=== PATIENT | male | born 1985 | race Caucasian/White ===

== ENCOUNTER 2018-03-18 17:18 | Emergency (ER) | payer BC ==
[~2018-03-18] VITALS: Ht 172.7 cm; Wt 90.7 kg
--- NOTE | 2018-03-18 17:37 | Emergency Room Report ---
History of Present Illness General Chief Complaint: Overdose Source: Patient Present Illness HPI Patient is a 32-year-old male who presented after reported overdose on multiple medications. Patient states that he ingested some GHB as well as multiple gabapentin. The patient says ingestion occurred approximately 1 hour prior to arrival. Patient had a brief loss of consciousness. States he has pain to his stomach and upper abdomen. He denies any vomiting. He reports having had generalized body aches. The patient denies any alcohol use. He states he may have taken some other things but does not recall what else he may have taken. Allergies: Coded Allergies: AMOXICILLIN (Unverified Allergy, Unknown, 03/18/18) Uncoded Allergies: AMOXICILLINS (Allergy, Unknown, 03/18/18) Patient History Reviewed Nursing Documentation: PMH: Agreed; PSxH: Agreed Nursing Documentation-PM Past Medical History: No History, Except For Review of Systems All Other Systems: negative except mentioned in HPI Physical Exam Vital Signs Date Time Temp Pulse Resp B/P (MAP) Pulse Ox O2 Delivery O2 Flow Rate FiO2 03/18/18 17:23 87 20 125/55 100 Room Air Sp02 EP Interpretation: reviewed, normal General Appearance: normal inspection, well appearing, no apparent distress, alert, GCS 15 Head: atraumatic ENT: normal ENT inspection, hearing grossly normal, normal voice Neck: normal inspection, full range of motion, supple, no bony tend Respiratory: normal inspection, lungs clear, normal breath sounds, no respiratory distress, no retraction, no wheezing Cardiovascular #1: regular rate, rhythm, no edema Gastrointestinal: normal inspection, normal bowel sounds, non tender, soft, no guarding, no hernia Genitourinary: no CVA tenderness Musculoskeletal: normal inspection, back normal, normal range of motion Neurologic: normal inspection, alert, oriented x3, responsive, box toe cutter III-XII nml as tested, speech normal Psychiatric: normal inspection, judgement/insight normal, mood/affect normal Skin: normal inspection, normal color, no rash Medical Decision Making Diagnostic Impression: Primary Impression: Drug overdose ER Course patient presented for drug overdose. Differential diagnoses include substance abuse, psychosis, bipolar disorder, depression, malingering. Because of complexity of patient's case laboratory testing and imaging studies were ordered.The laboratory studies were notable for elevated white blood count. Patient states is normal for him. The patient was advised to have white blood count rechecked. The patient was advised drug cessation. The patient stated he will go to a rehabilitation facility.The patient is advised to follow up with rehabilitation. Patient is advised to return if any worsening condition or if any changes in status that are concerning. This report is dictated with [employer] bibliographic services specialist software which may occasionally lead to discrepancies related to use of this software. Labs Test 03/18/18 17:45 White Blood Count 17.3 K/UL (4.8-10.8) Red Blood Count 4.94 M/UL (4.70-6.10) Hemoglobin 15.6 G/DL (14.2-18.0) Hematocrit 44.1 % (42.0-52.0) Mean Corpuscular Volume 89 FL (80-99) Mean Corpuscular Hemoglobin 31.6 PG (27.0-31.0) Mean Corpuscular Hemoglobin Concent 35.4 G/DL (32.0-36.0) Red Cell Distribution Width 11.6 % (11.6-14.8) Platelet Count 253 K/UL (150-450) Mean Platelet Volume 8.8 FL (6.5-10.1) Neutrophils (%) (Auto) 75.0 % (45.0-75.0) Lymphocytes (%) (Auto) 14.2 % (20.0-45.0) Monocytes (%) (Auto) 6.3 % (1.0-10.0) Eosinophils (%) (Auto) 3.5 % (0.0-3.0) Basophils (%) (Auto) 1.1 % (0.0-2.0) Urine Color Pale yellow Urine Appearance Clear Urine pH 5 (4.5-8.0) Urine Specific [place] 1.025 (1.005-1.035) Urine Protein Negative (NEGATIVE) Urine Glucose (UA) Negative (NEGATIVE) Urine Ketones 1+ (NEGATIVE) Urine Blood Negative (NEGATIVE) Urine Nitrite Negative (NEGATIVE) Urine Bilirubin Negative (NEGATIVE) Urine Urobilinogen Normal MG/DL (0.0-1.0) Urine Leukocyte Esterase 1+ (NEGATIVE) Urine RBC 0-2 /HPF (0 - 0) Urine WBC 2-4 /HPF (0 - 0) Urine Squamous Epithelial Cells None /LPF (NONE/OCC) Urine Bacteria Few /HPF (NONE) Sodium Level 142 MMOL/L (136-145) Potassium Level 4.0 MMOL/L (3.5-5.1) Chloride Level 105 MMOL/L (98-107) Carbon Dioxide Level 29 MMOL/L (21-32) Anion Gap 8 mmol/L (5-15) Blood Urea Nitrogen 15 mg/dL (7-18) Creatinine 1.1 MG/DL (0.55-1.30) Estimat Glomerular Filtration Rate > 60 mL/min (>60) Glucose Level 91 MG/DL (74-106) Calcium Level 8.9 MG/DL (8.5-10.1) Total Bilirubin 0.2 MG/DL (0.2-1.0) Aspartate Amino Transf (AST/SGOT) 17 U/L (15-37) Alanine Aminotransferase (ALT/SGPT) 39 U/L (12-78) Alkaline Phosphatase 57 U/L (46-116) Total Protein 7.6 G/DL (6.4-8.2) Albumin 3.8 G/DL (3.4-5.0) Globulin 3.8 g/dL Albumin/Globulin Ratio 1.0 (1.0-2.7) Salicylates Level 3.7 ug/mL (2.8-20) Urine Opiates Screen Negative (NEGATIVE) Acetaminophen Level < 2 MCG/ML (10-30) Urine Barbiturates Screen Negative (NEGATIVE) Phencyclidine (PCP) Screen Negative (NEGATIVE) Urine Amphetamines Screen Negative (NEGATIVE) Urine Benzodiazepines Screen Negative (NEGATIVE) Urine Cocaine Screen Negative (NEGATIVE) Urine Marijuana (THC) Screen Positive (NEGATIVE) Serum Alcohol < 3 mg/dL Last Vital Signs Date Time Temp Pulse Resp B/P (MAP) Pulse Ox O2 Delivery O2 Flow Rate FiO2 03/18/18 17:23 87 20 125/55 100 Room Air Status: improved Disposition: HOME, SELF-CARE Condition: Stable Misha Shepherd MD Mar 18, 2018 17:37
[2018-03-18 18:00] VITALS: BP 108/91
[2018-03-18 18:16] LABS: APPEARANCE,URINE CLEAR; BILIRUBIN, URINE NEGATIVE (NEGATIVE); COLOR,URINE PALE YELLOW; GLUCOSE, URINE (UA) NEGATIVE (NEGATIVE); KETONES,URINE 1+ (NEGATIVE); LEUKOCYTE ESTERASE ,URINE 1+ (NEGATIVE); NITRITE,URINE NEGATIVE (NEGATIVE); PH,URINE 5 (4.5-8.0); PROTEIN,URINE NEGATIVE (NEGATIVE); UROBILINOGEN,URINE NORMAL MG/DL (0.0-1.0)
[2018-03-18 18:17] LABS: BASOPHILS % (AUTO) 1.1 % (0.0-2.0); EOSINOPHILS % (AUTO) 3.5 % (0.0-3.0); HEMATOCRIT 44.1 % (42.0-52.0); HEMOGLOBIN 15.6 G/DL (14.2-18.0); LYMPHOCYTES % (AUTO) 14.2 % (20.0-45.0); MEAN CORPUSCULAR VOLUME 89 FL (80-99); MONOCYTES % (AUTO) 6.3 % (1.0-10.0); PLATELET COUNT 253 K/UL (150-450); RED BLOOD COUNT 4.94 M/UL (4.70-6.10); RED CELL DISTRIBUTION WIDTH 11.6 % (11.6-14.8); WHITE BLOOD COUNT 17.3 K/UL (4.8-10.8)
[2018-03-18 18:28] LABS: ANION GAP 8 mmol/L (5-15); BLOOD UREA NITROGEN 15 mg/dL (7-18); CALCIUM 8.9 MG/DL (8.5-10.1); CARBON DIOXIDE 29 MMOL/L (21-32); CHLORIDE 105 MMOL/L (98-107); CREATININE 1.1 MG/DL (0.55-1.30); SODIUM 142 MMOL/L (136-145)
[2018-03-18 18:33] LABS: ALANINE AMINOTRANSFERASE 39 U/L (12-78); ALBUMIN 3.8 G/DL (3.4-5.0); ALKALINE PHOSPHATASE 57 U/L (46-116); ASPARTATE AMINO TRANSFERASE 17 U/L (15-37); BILIRUBIN,TOTAL 0.2 MG/DL (0.2-1.0)
[2018-03-18 18:43] VITALS: BP 108/91
[2018-03-18] MEDS ORDERED: Acetaminophen 500mg (ES) tab ORAL ONE (18:45)
== END 2018-03-18 18:44 | disposition home or self-care (01) ==
LOC: EMR 17:40
DX: T50.991A Poisoning by other drugs, medicaments and biological substances, accidental (unintentional), initial encounter (principal); R10.9 Unspecified abdominal pain; Y92.9 Unspecified place or not applicable; Z88.1 Allergy status to other antibiotic agents
CPT/HCPCS: 36415; 80053; 80307; 81003; 85025; 99284; G0480; 80329

== ENCOUNTER → 2020-05-22 | Emergency (ER) | payer BC ==
[~2020-05-22] VITALS: Ht 172.7 cm; Wt 108.9 kg
[~2020-05-22] MED LIST: Naloxone 0.4mg/ml Inj IVP ONE
--- NOTE | 2020-05-22 21:15 | NUR ---
ED Nurse Note: Patient brought in by ambulance [facility] 62 [facility] due to snorting fentanyl. Pt was given 4ml narcan per EMS. PAtient is awake and alert upon arrival. [employer] at bedside. Patient denies SI/HI. Pt denies CP/SOB/, fever and chills, N&V. Patient placed on monitor bed.
--- NOTE | 2020-05-22 21:16 | NUR ---
ED Nurse Note: ERMD at bedside
[2020-05-22 21:30] VITALS: BP 156/101
--- NOTE | 2020-05-22 21:30 | NUR ---
ED Nurse Note: Blood sent to lab
[2020-05-22 22:00] LABS: HEMATOCRIT 47.1 % (42.0-52.0); HEMOGLOBIN 15.2 G/DL (14.2-18.0); MEAN CORPUSCULAR VOLUME 93 FL (80-99); PLATELET COUNT 242 K/UL (150-450); RED BLOOD COUNT 5.09 M/UL (4.70-6.10); RED CELL DISTRIBUTION WIDTH 14.1 % (11.6-14.8); WHITE BLOOD COUNT 16.9 K/UL (4.8-10.8)
[2020-05-22 22:01] LABS: BASOPHILS % (AUTO) 1.2 % (0.0-2.0); EOSINOPHILS % (AUTO) 0.8 % (0.0-3.0); LYMPHOCYTES % (AUTO) 6.7 % (20.0-45.0); MONOCYTES % (AUTO) 4.7 % (1.0-10.0); NEUTROPHILS % (AUTO) 86.5 % (45.0-75.0)
[2020-05-22 22:12] LABS: ANION GAP 7 mmol/L (5-15); BLOOD UREA NITROGEN 15 mg/dL (7-18); CALCIUM 8.3 MG/DL (8.5-10.1); CARBON DIOXIDE 30 MMOL/L (21-32); CHLORIDE 101 MMOL/L (98-107); CREATININE 1.7 MG/DL (0.55-1.30); POTASSIUM 4.7 MMOL/L (3.5-5.1); SODIUM 138 MMOL/L (136-145)
[2020-05-22 22:16] LABS: ALANINE AMINOTRANSFERASE 29 U/L (12-78); ALBUMIN 3.9 G/DL (3.4-5.0); ALBUMIN/GLOBULIN RATIO 0.9 (1.0-2.7); ALKALINE PHOSPHATASE 64 U/L (46-116); ASPARTATE AMINO TRANSFERASE 24 U/L (15-37); BILIRUBIN,TOTAL 0.2 MG/DL (0.2-1.0)
--- NOTE | 2020-05-22 22:49 | Emergency Room Report ---
History of Present Illness General Chief Complaint: Substance Abuse Source: Patient (Gregorio Yousif MD) Present Illness HPI 35-year-old male presents to ED for overdose. Brought in by EMS from home. Used fentanyl today. Was given Narcan. Is now alert and oriented. Denies SI or HI. Was not trying to hurt himself. States he has been sober for a few months now. Takes Suboxone. Denies any other drug use. No other aggravating relieving factors. Denies any other associated symptoms (Gregorio Yousif MD) Allergies: Coded Allergies: AMOXICILLIN (Unverified Allergy, Unknown, 03/18/18) Uncoded Allergies: AMOXICILLINS (Allergy, Unknown, 03/18/18) COVID-19 Screening Contact w/high risk pt: No Experienced COVID-19 symptoms?: No COVID-19 Testing performed PRACTICE OFFICE ASSOCIATE: No (Gregorio Yousif MD) Patient History Past Medical History: none Past Surgical History: none Pertinent Family History: none Social History: Reports: drug use; Denies: smoking, alcohol use Immunizations: UTD Reviewed Nursing Documentation: PMH: Agreed; PSxH: Agreed (Gregorio Yousif MD) Nursing Documentation-PMH History Of Psychiatric Problem: Yes - substance abuse (Gregorio Yousif MD) Review of Systems All Other Systems: negative except mentioned in HPI (Gregorio Yousif MD) Physical Exam Vital Signs Date Time Temp Pulse Resp B/P (MAP) Pulse Ox O2 Delivery O2 Flow Rate FiO2 05/22/20 21:07 98.6 75 16 156/101 (119) 98 Room Air Sp02 EP Interpretation: reviewed, normal General Appearance: no apparent distress, alert, GCS 15, non-toxic Head: normocephalic, atraumatic Eyes: bilateral eye normal inspection, bilateral eye PERRL ENT: hearing grossly normal, normal pharynx, no angioedema, normal voice Neck: full range of motion, supple/symm/no masses Respiratory: chest non-tender, lungs clear, normal breath sounds, speaking full sentences Cardiovascular #1: regular rate, rhythm, no edema Cardiovascular #2: 2+ carotid (R), 2+ carotid (L), 2+ radial (R), 2+ radial (L), 2+ dorsalis pedis (R), 2+ dorsalis pedis (L) Gastrointestinal: normal bowel sounds, non tender, soft, non-distended, no guarding, no rebound Rectal: deferred Genitourinary: normal inspection, no CVA tenderness Musculoskeletal: back normal, normal range of motion, gait/station normal, non- tender Neurologic: alert, motor strength/tone normal, oriented x3, sensory intact, responsive, speech normal Psychiatric: judgement/insight normal, memory normal, no suicidal/homicidal ideation, no delusions, anxious Reflexes: 3+ bicep (R), 3+ bicep (L), 3+ tricep (R), 3+ tricep (L), 3+ knee (R), 3+ knee (L) Lymphatic: no adenopathy (Gregorio Yousif MD) Medical Decision Making Diagnostic Impression: Primary Impression: Substance abuse Additional Impressions: Marijuana abuse Nausea and vomiting Laboratory Tests Test 05/22/20 21:45 White Blood Count 16.9 K/UL (4.8-10.8) H Red Blood Count 5.09 M/UL (4.70-6.10) Hemoglobin 15.2 G/DL (14.2-18.0) Hematocrit 47.1 % (42.0-52.0) Mean Corpuscular Volume 93 FL (80-99) Mean Corpuscular Hemoglobin 29.9 PG (27.0-31.0) Mean Corpuscular Hemoglobin Concent 32.3 G/DL (32.0-36.0) Red Cell Distribution Width 14.1 % (11.6-14.8) Platelet Count 242 K/UL (150-450) Mean Platelet Volume 10.2 FL (6.5-10.1) H Neutrophils (%) (Auto) 86.5 % (45.0-75.0) H Lymphocytes (%) (Auto) 6.7 % (20.0-45.0) L Monocytes (%) (Auto) 4.7 % (1.0-10.0) Eosinophils (%) (Auto) 0.8 % (0.0-3.0) Basophils (%) (Auto) 1.2 % (0.0-2.0) Sodium Level 138 MMOL/L (136-145) Potassium Level 4.7 MMOL/L (3.5-5.1) Chloride Level 101 MMOL/L (98-107) Carbon Dioxide Level 30 MMOL/L (21-32) Anion Gap 7 mmol/L (5-15) Blood Urea Nitrogen 15 mg/dL (7-18) Creatinine 1.7 MG/DL (0.55-1.30) H Estimat Glomerular Filtration Rate 46.4 mL/min (>60) Glucose Level 87 MG/DL (74-106) Calcium Level 8.3 MG/DL (8.5-10.1) L Total Bilirubin 0.2 MG/DL (0.2-1.0) Aspartate Amino Transf (AST/SGOT) 24 U/L (15-37) Alanine Aminotransferase (ALT/SGPT) 29 U/L (12-78) Alkaline Phosphatase 64 U/L (46-116) Total Protein 8.1 G/DL (6.4-8.2) Albumin 3.9 G/DL (3.4-5.0) Globulin 4.2 g/dL Albumin/Globulin Ratio 0.9 (1.0-2.7) L Salicylates Level 2.6 ug/mL (2.8-20) L Acetaminophen Level < 2 MCG/ML (10-30) L Serum Alcohol < 3 mg/dL (Gregorio Yousif MD) ER Course 35-year-old male here with initial altered mental status. He was given Narcan with full resolution of his altered mental status. Patient denies fentanyl or heroin. Labs show nonspecific leukocytosis. No bandemia. UDS is positive for marijuana. Mild CASSANDRA He had a few episodes of vomiting which were medicated with Zofran. Abdominal examination was benign. Doubt surgical abdomen. Care to be signed out pending sobriety (Beverly Paredes D.O.) ER Course Assumed care of the patient from the previous provider at approximately 0630. Please refer to initial note for full history and physical exam. Briefly, 35-year-old male brought in for evaluation after substance abuse. He received Narcan with improvement his mental status. Labs otherwise unremarkable. He was pending sobriety at the time of signout. He is now awake, alert, ambulating with a steady gait. His sober living facility was contacted to pick the patient up. He is stable for outpatient follow-up. (Adalberto Osborne MD) EKG Diagnostic Results Troponin ordered: No (Beverly Paredes D.O.) Last Vital Signs Date Time Temp Pulse Resp B/P (MAP) Pulse Ox O2 Delivery O2 Flow Rate FiO2 05/22/20 21:07 98.6 75 16 156/101 (119) 98 Room Air Status: improved (Gregorio Yousif MD) Reevaluation Time: 05:24 Status: unchanged (Beverly Paredes D.O.) Disposition: HOME, SELF-CARE Condition: Stable Signed Out To: Dr Osborne pending re-examination after sobriety. (Beverly Paredes D.O.) Referrals: NOT CHOSEN IPA/,REFERRING (PCP) Gregorio Yousif MD May 22, 2020 22:49 Beverly Paredes D.O. May 23, 2020 05:26 Adalberto Osborne MD May 23, 2020 06:53
--- NOTE | 2020-05-23 00:10 | NUR ---
ED Nurse Note: Patient resting on bed. VSS as documented
[2020-05-23 01:00] VITALS: BP 148/89
[2020-05-23 03:00] VITALS: BP 137/78
--- NOTE | 2020-05-23 05:00 | NUR ---
ED Nurse Note: Patient vomited approx 50cc of gastric juice. ERMD notified with orders made and carried out
[2020-05-23 05:32] VITALS: BP 137/90
--- NOTE | 2020-05-23 06:30 | NUR ---
ED Nurse Note: Called [phone] but no answer. Left voicemail
--- NOTE | 2020-05-23 07:14 | NUR ---
ED Nurse Note: Report given to ANKITA MARTIN
[2020-05-23 07:15] VITALS: BP 122/77
--- NOTE | 2020-05-23 07:15 | NUR ---
ED Nurse Note: Patient is AAO x4 and follows commands. Pt is resting on gurney with no acute distress. Respirations are even and non labored.
--- NOTE | 2020-05-23 07:19 | NUR ---
ED Nurse Note: spoke with felician[facility] from [facility] and was told that he will picking belt operator the patient at 0830
== END | disposition home or self-care (01) ==
LOC: EDUNIT# 21:06 → EDBD 21:14 → EMR 21:55
DX: F19.10 Other psychoactive substance abuse, uncomplicated (principal); F12.10 Cannabis abuse, uncomplicated; R11.2 Nausea with vomiting, unspecified; Z88.1 Allergy status to other antibiotic agents; D72.829 Elevated white blood cell count, unspecified; N17.9 Acute kidney failure, unspecified
CPT/HCPCS: 36415; 80053; 85025; 96361; 96374; 96375; 96376; 99284; G0480; J2310; J2405; J7030; 80307

== ENCOUNTER 2020-06-09 11:13 | Emergency (ER) | payer BC ==
[~2020-06-09] VITALS: Ht 177.8 cm; Wt 104.3 kg
[2020-06-09 11:39] VITALS: BP 135/91
--- NOTE | 2020-06-09 11:41 | NUR ---
ED Nurse Note: walked in to ed c/o nose injury s/p fall during shower. pt states he slipped and hit his face on the wall. unk if loc, pt states utd tdap. nose not actively bleeding at this time. vss, nad, aaox4, ambulatory
[2020-06-09] MEDS ORDERED: Ketorolac 30mg Inj IM ONE (12:00)
[2020-06-09] MEDS ORDERED: Bacitracin Oint UD TOPIC ONE (12:00)
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
--- NOTE | 2020-06-09 12:29 | NUR ---
ED Nurse Note: Pt was taken to Xray
--- NOTE | 2020-06-09 13:03 | Diagnostic Imaging Report ---
EXAM: XR Nasal Bones, 3 or More Views CLINICAL HISTORY: TRAUMA TECHNIQUE: Frontal and lateral views of the nasal bones. COMPARISON: None FINDINGS: Bones/joints: Suspect nondisplaced fractures of the nasal bones which could be further evaluated with CT if clinically indicated. Sinuses: Unremarkable. No air-fluid levels. Soft tissues: Left facial piercing. IMPRESSION: Suspect nondisplaced fractures of the nasal bones which could be further evaluated with CT if clinically indicated.
[2020-06-09] MEDS ORDERED: IBUPROFEN600 M1 ORAL (13:42)
[2020-06-09] MEDS ORDERED: BACITRACIN15 GM TOPIC (13:42)
[2020-06-09 13:45] VITALS: BP 135/91
--- NOTE | 2020-06-09 13:45 | NUR ---
ED Nurse Note: Pt cleared by ERMD for discharge. DC instructions/prescription was given and explained to pt and verbalized understanding of teachings. All medical deviecs such as ID band removed. Pt is AAO x4, ambulatory and left with all personal belongings.
== END 2020-06-09 13:45 | disposition home or self-care (01) ==
LOC: EMR 12:15
DX: S02.2XXA Fracture of nasal bones, initial encounter for closed fracture (principal); W18.2XXA Fall in (into) shower or empty bathtub, initial encounter; Y92.9 Unspecified place or not applicable; Z88.1 Allergy status to other antibiotic agents; F17.200 Nicotine dependence, unspecified, uncomplicated; S00.81XA Abrasion of other part of head, initial encounter
CPT/HCPCS: 70160; 96372; 99283; J1885